=== PATIENT | female | born 1990 | race Caucasian/White ===

== ENCOUNTER 2018-02-26 22:02 | Emergency (ER) | payer BC, SELFPAY ==
[2018-02-26 22:03] VITALS: BP 115/82; PULSE 84; RESP 16; TEMP 36.6; O2SAT 99; BMI 26.3
--- NOTE | 2018-02-26 22:35 | RAD_ITS ---
STUDY: X-RAY - LEFT FOOT CLINICAL: Female, 27 years old. Fall, pain TECHNIQUE: 3 view(s) of the foot. COMPARISON: None. FINDINGS: Normal talus, calcaneus, and tarsal bones. Normal visualized subtalar, talonavicular, calcaneocuboid, tarsal and tarsometatarsal articulations. Normal metatarsi. Normal metatarsophalangeal joint of the great toe. Normal tibial and fibular sesamoid bones. Normal interphalangeal joint of the great toe. Normal phalanges of the great toe. Normal second through fifth metatarsophalangeal joints. Normal interphalangeal joints and phalanges of the lesser toes. The soft tissue structures are unremarkable. RAD/Foot min 3 Views IMPRESSION: Normal x-ray examination of the foot. Electronically Signed: Pan Rojas DO at 23:14 EST Tel [phone], Service support ,
--- NOTE | 2018-02-26 22:35 | RAD_ITS ---
STUDY: X-RAY - LEFT TIBIA AND FIBULA REASON FOR EXAM: Female, 27 years old. Left ankle and foot pain after fall. TECHNIQUE: 3 view(s) of the tibia and fibula were obtained. COMPARISON: Left ankle, February 26, 2018. FINDINGS: Normal visualized tibia. Normal visualized fibula. There is no acute fracture, dislocation or destructive osseous pathology. The knee and ankle appear intact. There is soft tissue swelling about the lateral foot. RAD/Tibia & Fibula 2 Views IMPRESSION: Soft tissue swelling about the lateral foot. The tibia and fibula are unremarkable. Electronically Signed: Asad Alvarado DO at 23:23 EST Tel [phone], Service support ,
--- NOTE | 2018-02-26 22:36 | ED.VISSUMM ---
- ER Visit Summary Date of Service: 02/26/18 Chief Complaint: Left ankle and foot injury History of Present Illness: The patient is a 27 F who presents for evaluation of left ankle and foot injury. Patient missed the bottom step on a flight of stairs and fell, landing on her left foot. She felt a pop. She has been unable to stand since the injury. She denies any other injuries, including hitting her head, hurting her neck or back, or any other extremities. She placed ice on the injury. No medical problems. Patient is not a smoker. She has a latex sensitivity. Physical Examination: She is well-nourished and well-developed in no distress. Left lower extremity shows significant swelling over the anterior lateral ankle without involvement of the malleoli. Patient has tenderness to palpation of the dorsum of the foot, the lateral malleolus, at the navicular head, and along the fifth metatarsal. Sensation is intact distally. DP pulses 2+ and strong. No tenderness along palpation of the tibia or fibula. No calf tenderness. Remainder of exam unremarkable. Test Results: Clinical Impression(s) from Imaging Studies Foot X-Ray 02/26/18 22:35 IMPRESSION: Normal x-ray examination of the foot. Electronically Signed: Pan Rojas DO at 23:14 EST Tel [phone], Service support , Tibia/Fibula X-Ray 02/26/18 22:35 IMPRESSION: Soft tissue swelling about the lateral foot. The tibia and fibula are unremarkable. Electronically Signed: Asad Alvarado DO at 23:23 EST Tel [phone], Service support , Ankle X-Ray 02/26/18 22:48 IMPRESSION: Lateral soft tissue swelling without visualized fracture or dislocation. Electronically Signed: Asad Alvarado DO at 23:22 EST Tel [phone], Service support , Medications Given Discontinued Medications Hydrocodone Bitart/Acetaminophen ([place] 5mg-325mg) 1 tablet PO X1 ONE Stop: 02/26/18 22:36 Last Admin: 02/26/18 22:40 Dose: 1 tablet Emergency Department Course and Treatment: X-ray was performed from the tib-fib to the foot. Ice placed on the area of injury and patient was given [place] for pain. X-ray performed of the tib-fib, ankle and foot. No fractures or dislocations noted. Patient's examination is concerning for a severe sprain, that she was placed in a walking boot and given crutches to weight-bear as tolerated. She was given instructions on RICE therapy and follow-up with orthopedics. Ankle and foot were reevaluated, and patient still had good sensory, motor and DP pulse present. Return precautions given. Discharged home. Treatment Plan: [] Disposition: [] Impression: Left ankle sprain This note was generated with [employer] dictation software. It may contain incorrect words, spelling, and punctuation that were not noted in review of the chart prior to signing ED Disposition - Plan for ED Patient: Disposition: Home or Assisted Living Chief Complaint: Lower Extremity Injury Instructions: ED Sprain Ankle No X Ray, ED Boot Aircast Walker Referrals: Shemar Ramirez MD [Primary Care Provider] - 1 Week if not improving Brock Morales DO [STAFF PHYSICIAN] - 1 Week Additional Instructions: Your x-rays showed no broken bones (fractures). You have sprained your ankle, which means a ligament or tendon has been damaged. Wear the walking boot to help keep your ankle stable and comfortable, and use crutches as needed. Weight-bear as tolerated. Use [id number] pain medication as needed for pain. Rest your ankle, keep it elevated as much as possible, and apply ice to it 3-4 times a day. Follow-up with orthopedics within 1 week, especially if you are not having any improvement. If you have any worsening of your condition or any new concerning symptoms, please return immediately to the emergency department for another evaluation.
[2018-02-26] MEDS: HYDROcodone Bitartrate/Apap 5/325 Tablet PO (22:40)
--- NOTE | 2018-02-26 22:48 | RAD_ITS ---
STUDY: X-RAY - LEFT ANKLE REASON FOR EXAM: Female, 27 years old. Ankle and foot pain after fall. TECHNIQUE: 3 view(s) of the ankle. COMPARISON: None. FINDINGS: Normal visualized distal tibia and fibula. Normal medial and lateral malleoli. Normal tibiotalar articulation and ankle mortise. Normal visualized talus and calcaneus. The visualized subtalar, talonavicular, calcaneocuboid and tarsal articulations are normal. There is lateral soft tissue swelling suggesting mild sprain. RAD/Ankle min 3 Views IMPRESSION: Lateral soft tissue swelling without visualized fracture or dislocation. Electronically Signed: Asad Alvarado DO at 23:22 EST Tel [phone], Service support ,
--- NOTE | 2018-02-26 23:33 | ED.DEP ---
ED Disposition - Plan for ED Patient: Disposition: Home or Assisted Living Chief Complaint: Lower Extremity Injury Instructions: ED Sprain Ankle No X Ray, ED Boot Aircast Walker Referrals: Shemar Ramirez MD [Primary Care Provider] - 1 Week if not improving Brock Morales DO [STAFF PHYSICIAN] - 1 Week Additional Instructions: Your x-rays showed no broken bones (fractures). You have sprained your ankle, which means a ligament or tendon has been damaged. Wear the walking boot to help keep your ankle stable and comfortable, and use crutches as needed. Weight-bear as tolerated. Use [id number]-[id number] pain medication as needed for pain. Rest your ankle, keep it elevated as much as possible, and apply ice to it 3-4 times a day. Follow-up with orthopedics within 1 week, especially if you are not having any improvement. If you have any worsening of your condition or any new concerning symptoms, please return immediately to the emergency department for another evaluation.
--- NOTE | 2018-02-26 23:36 | DCINST.ED_ITS ---
ED Disposition - Plan for ED Patient: Disposition: Home or Assisted Living Chief Complaint: Lower Extremity Injury Instructions: ED Sprain Ankle No X Ray, ED Boot Aircast Walker Referrals: Shemar Ramirez MD [Primary Care Provider] - 1 Week if not improving Brock Morales DO [STAFF PHYSICIAN] - 1 Week Additional Instructions: Your x-rays showed no broken bones (fractures). You have sprained your ankle, which means a ligament or tendon has been damaged. Wear the walking boot to help keep your ankle stable and comfortable, and use crutches as needed. Weight-bear as tolerated. Use [id number]-vhyetdq pain medication as needed for pain. Rest your ankle, keep it elevated as much as possible, and apply ice to it 3-4 times a day. Follow-up with orthopedics within 1 week, especially if you are not having any improvement. If you have any worsening of your condition or any new concerning symptoms, please return immediately to the emergency department for another evaluation.
[2018-02-27 00:18] VITALS: BP 98/69; PULSE 83; RESP 15; O2SAT 97
== END 2018-02-27 00:18 | disposition home or self-care (01) ==
PROVIDERS: Emergency Provider Emergency Medicine; Family Provider Family Medicine; PCP Family Medicine
DX: S93.402A Sprain of unspecified ligament of left ankle, initial encounter (principal); W10.9XXA Fall (on) (from) unspecified stairs and steps, initial encounter; Y93.01 Activity, walking, marching and hiking; Y92.89 Other specified places as the place of occurrence of the external cause; Y99.8 Other external cause status
CPT/HCPCS: 73590; 73610; 73630; 99284

== ENCOUNTER → 2018-08-14 | Outpatient (CLI) | payer BC, SELFPAY ==
[2018-08-14 13:25] VITALS: BMI 26.3
[2018-08-20 11:32] LABS: HPV Reflexed? NOT INDICATED
== END | disposition home or self-care (01) ==
LOC: LABSPEC 16:33
PROVIDERS: Family Provider Family Medicine; PCP Family Medicine; Referring Provider Obstetrics & Gynecology; Visit Provider Obstetrics & Gynecology
DX: Z12.4 Encounter for screening for malignant neoplasm of cervix (principal)
CPT/HCPCS: 87624; 88175; G0145

== ENCOUNTER → 2018-12-02 | Outpatient (CLI) | payer BC, SELFPAY ==
[2018-08-14 13:25] VITALS: BMI 26.3
--- NOTE | 2018-12-02 08:17 | CT_ITS ---
STUDY: CT SOFT TISSUE NECK WITH CONTRAST REASON FOR EXAM: Female, 28 years old. History of cervical lymphadenopathy. RADIATION DOSAGE (If Supplied By Facility): CTDIvol = ( 16.42 ) mGy, DLP = ( 500.29 ) mGycm TECHNIQUE: The patient was scanned in a multi-detector CT scanner. High resolution transaxial imaging was performed following intravenous administration of IV 100mL [id number]-300 100. Sagittal and coronal images were reconstructed. Individualized dose optimization techniques were used for this CT. COMPARISON: None. FINDINGS: Normal bilateral parotid glands. Normal bilateral mask inspector spaces. Normal bilateral parapharyngeal spaces. Normal bilateral carotid spaces. Normal bilateral sublingual and submandibular glands and spaces. Normal visualized nasopharynx. Normal retropharyngeal space. Normal perivertebral space. Normal visualized bilateral faucial tonsils. The visualized tongue, tongue base and oropharynx are normal. There are minimally enlarged lymph nodes of the neck, with preservation of normal sherrie architecture, consistent with a reactive lymph hyperplasia. The palpable abnormality corresponds to a 5 mm benign-appearing rounded nodular densities just above a small lymph node. There is no demonstrated solid or cystic mass lesion. There is no abnormal contrast enhancement. Normal epiglottis, bilateral vallecula and hypopharynx. The pre-epiglottic and paraglottic adipose spaces are normal. Normal visualized bilateral piriform sinuses, aryepiglottic folds, vocal cords, and arytenoid-cricoid articulations. Normal subglottic trachea. Normal bilateral lobes of the thyroid gland. Normal visualized pulmonary apices. Mucosal polyp or retention cyst in the inferior aspect of the right maxillary sinus. Normal visualized cervical spine. CT/Soft Tissue Neck WITH Contrast IMPRESSION: The palpable abnormality corresponds to a 5 mm well-defined nodule. This most likely represents a small lymph node. Electronically Signed: Vish Ritter, at 9:34 EDT , Service support ,
== END | disposition home or self-care (01) ==
LOC: CT 08:14
PROVIDERS: Family Provider Family Medicine; PCP Family Medicine; Referring Provider Family Medicine; Visit Provider Family Medicine
DX: R59.0 Localized enlarged lymph nodes (principal)
CPT/HCPCS: 70491; Q9967

== ENCOUNTER 2021-03-13 17:13 | Outpatient (CLI) | payer BC, SELFPAY ==
--- NOTE | 2021-03-13 17:19 | RAD_ITS ---
EXAM: XR LEFT WRIST COMPLETE, 3 OR MORE VIEWS : 1990 CLINICAL INDICATION: PAIN TECHNIQUE: Frontal, lateral and oblique views of the left wrist. This report was created using [employer] report generation technology. COMPARISON: None. FINDINGS: BONES/JOINTS: Unremarkable. No acute fracture. No subluxation. Normal alignment. Preservation of the joint space. No sclerotic or destructive changes observed. SOFT TISSUES: Unremarkable. No soft tissue swelling or gas. No radiopaque foreign body. RAD/Wrist min 3 Views IMPRESSION: Negative left wrist x-rays. at 0206 Reported and signed by: Stan Baig MD Electronically Signed: Stan Baig MD at 2:05 EST Tel , Service support ,
== END 2021-03-13 23:59 | disposition short-term general hospital (02) ==
LOC: MTRAD 17:16
PROVIDERS: PCP Family Medicine; Referring Provider Family Medicine; Visit Provider Family Medicine
DX: M25.532 Pain in left wrist (principal)
CPT/HCPCS: 73110

== ENCOUNTER 2021-03-29 16:59 | Outpatient (CLI) | payer BC, SELFPAY ==
--- NOTE | 2021-03-29 17:15 | MRI_ITS ---
STUDY: MRI LEFT WRIST WITHOUT CONTRAST REASON FOR EXAM: Left wrist lump for less than one year, left wrist pain. TECHNIQUE: Standardized fat and water weighted pulse sequences were obtained in all 3 orthogonal planes. COMPARISON: Radiographs 03/13/2021. FINDINGS: Normal visualized distal radius and ulna. Normal distal radioulnar articulation (DRUJ). Normal triangular fibrocartilaginous complex (TFCC). Normal carpal bones. Normal radiocarpal, intercarpal and midcarpal articulations. Normal pisotriquetral articulation. Normal visualized interosseous scapholunate ligament. Normal extensor tendons. Normal flexor tendons. Normal carpal tunnel with a normal median nerve. Normal carpometacarpal articulation of the thumb. Normal second through fifth carpometacarpal articulations. Normal visualized metacarpal bones. There is a ganglion cyst at the dorsal aspect of the proximal pole of the scaphoid and radial aspect of the lunate corresponding to the skin marker (T2 sagittal images 15-21; inversion recovery coronal images 14-16) measuring 0.5 x 1.5 x 0.7 cm (AP x transverse x length). MRI/Upper Ext Joint Only(Routine) IMPRESSION: Dorsal ganglion cyst. Electronically Signed: Jaiden Gallo MD at 7:59 EST ,
== END 2021-03-29 23:59 | disposition short-term general hospital (02) ==
PROVIDERS: PCP Family Medicine; Visit Provider Family Medicine
DX: M25.532 Pain in left wrist (principal); M25.59 Pain in other specified joint
CPT/HCPCS: 73221

== ENCOUNTER → 2022-02-28 | Outpatient (CLI) | payer BC, SELFPAY ==
[2022-03-09 17:31] LABS: HPV APTIMA, High Risk Negative (Negative)
== END | disposition home or self-care (01) ==
LOC: LABSPEC 12:51
PROVIDERS: PCP Family Medicine; Referring Provider Nurse Practitioner Women's Health; Visit Provider Nurse Practitioner Women's Health
DX: Z12.4 Encounter for screening for malignant neoplasm of cervix (principal)
CPT/HCPCS: 87624; 88175; G0145

== ENCOUNTER → 2022-03-23 | Outpatient (CLI) | payer BC, SELFPAY ==
--- NOTE | 2022-03-23 16:22 | US_ITS ---
STUDY: ULTRASOUND OF THE FEMALE PELVIS - COMPLETE REASON FOR EXAM: Female, 31 years old. RLQ PAIN LMP: TECHNIQUE: Transabdominal and transvaginal TECHNICAL QUALITY: Adequate. COMPARISON: None. FINDINGS: The uterus is anteverted and is in a midline position. The uterus measures 8.3 x 4.9 x 3.8 cm. Normal uterine cervix. The endometrium measures 5 mm in thickness, and is hyperechoic. There is no demonstrated endometrial mass. There is no demonstrated myometrial mass. I.U.D. - The patient does not have an I.U.D. The right ovary is visualized. The right ovary measures 4.5 x 3.2 x 2.5 cm cm. There is a cyst measuring 1.5 x 1.8 x 1.2 cm . There is no visualized right adnexal mass or complex lesion. There is normal arterial and normal venous vascularity. The left ovary is visualized. The left ovary measures 2.5 x 1.8 x 7 cm. There is a tiny cyst measuring 8 x 9 x 7 mm. There is no visualized left adnexal mass or complex lesion. There is normal arterial and normal venous vascularity. There is mild fluid in the cul-de-sac. The pre void volume of the bladder was 441 ml. US/Pelvic (Non ) IMPRESSION: Bilateral right ovarian cyst larger on the right measuring 1.5 x 1.8 x 1.2 cm Small amount of fluid in the cul-de-sac possibly due to recent ovulation Electronically Signed: Francisco Javier Yancey MD at 17:43 EST ,
== END | disposition home or self-care (01) ==
PROVIDERS: PCP Family Medicine; Referring Provider Nurse Practitioner Women's Health; Visit Provider Nurse Practitioner Women's Health
DX: R10.2 Pelvic and perineal pain (principal)
CPT/HCPCS: 76830; 76856

== ENCOUNTER → 2024-06-09 | Outpatient (CLI) | payer BC, SELFPAY | END | disposition home or self-care (01) | LOC: LABSPEC 16:35 | PROVIDERS: PCP Family Medicine; Referring Provider Nurse Practitioner Women's Health; Visit Provider Nurse Practitioner Women's Health | DX: R30.0 Dysuria (principal) | CPT/HCPCS: 87086 ==